=== PATIENT | male | born 1960 | race Caucasian/White ===

== ENCOUNTER → 2023-11-25 17:22 | Outpatient (REF) | payer OTHER, SELFPAY | LOC: RAD 17:22 | PROVIDERS: ATTENDING PHYSICIAN Family Medicine | DX: L04.9 Acute lymphadenitis, unspecified (principal) | CPT/HCPCS: 76536 ==

== ENCOUNTER → 2023-12-14 14:35 | Outpatient (REF) | payer MEDICARE, OTHER, SELFPAY | LOC: RAD 14:35 | PROVIDERS: ATTENDING PHYSICIAN Family Medicine | DX: L72.9 Follicular cyst of the skin and subcutaneous tissue, unspecified (principal); L04.9 Acute lymphadenitis, unspecified | CPT/HCPCS: 70491; Q9967 ==